=== PATIENT | female | born 1995 | race African-American/Black ===

== ENCOUNTER 2022-08-17 01:10 | Outpatient (CLI) | payer BC, MEDICAID, SELFPAY ==
[2022-08-17] VITALS (9 sets, daily range): BP systolic 146–171; BP diastolic 94–103; PULSE 62–73; BMI 30.9
[2022-08-17 02:34] LABS: Basophils Percent Auto 0.1 % (0.2-1.2); Eosinophils Absolute Auto 0.1 K/mm3 (0-0.3); Eosinophils Percent Auto 1.5 % (0-4.4); Hematocrit 30.8 % (37.0-47.0); Hemoglobin 9.6 g/dL (12.0-15.0); Immature Granulocyte Absolute 0.03 K/mm3 (0.00-0.031); Immature Granulocyte Percent A 0.4 % (0-0.5); Lymphocytes Absolute Auto 2.08 K/mm3 (0.9-3.2); Lymphocytes Percent Auto 24.6 % (18.3-44.2); Mean Corpuscular HGB Conc 31.2 g/dl (32-36); Mean Corpuscular Hemoglobin 25.7 pg (26-34); Mean Corpuscular Volume 82.6 fl (80-100); Mean Platelet Volume 11.3 fl (7.4-10.4); Monocytes Absolute Auto 1.2 K/mm3 (0.1-0.6); Monocytes Percent Auto 13.7 % (2.6-8.5); Neutrophils Percent Auto 59.7 % (45.5-73.1); Platelet Count Result 186 k/mm3 (150-375); Red Blood Count 3.73 M/mm3 (4.2-5.4); Red Cell Distribution Width 13.3 % (11.5-14.5); White Blood Count 8.5 K/mm3 (4.5-10.0)
[2022-08-17 02:36] LABS: Appearance Urine Slightly Cloudy (Clear); Bilirubin Urine Negative (Negative); Blood Urine Negative (Negative); Color Urine Yellow (Yellow); Glucose Urine UA Negative (Negative); Ketones Urine Trace mg/dL (Negative); Leukocyte Esterase Ur 3+ LEU/UL (NEGATIVE); Nitrate Urine Negative (Negative); Protein Urine 1+ mg/dL (Negative); Urobilinogen Urine 0.2 mg/dL (<2.0)
[2022-08-17 02:40] LABS: Bacteria Urine Trace /hpf; Mucus Urine Rare /lpf; Squamous Epithelial Cell Urine Many /hpf (Few); WBC Urine 51-75 /hpf (0-3)
[2022-08-17 03:03] LABS: Alanine Aminotransferase 27 U/L (6-35); Albumin Level 3.3 g/dL (3.5-5.1); Alkaline Phosphatase 133 U/L (38-126); Anion Gap 8 mmol/L (8-16); Aspartate Amino Transferase 30 U/L (14-36); Bilirubin,Total 0.1 mg/dL (0.2-1.3); Blood Urea Nitrogen 9 mg/dL (7-17); Calcium 8.7 mg/dL (8.4-10.2); Carbon Dioxide 23 mmol/L (22-30); Chloride 104 mmol/L (98-107); Estimated Glomerular Filt Rate > 60; Glucose 94 mg/dL (65-110); Sodium 135 mmol/L (137-145); Uric Acid 3.4 mg/dL (2.5-7.5)
[2022-08-17 03:28] LABS: Creatinine Urine 176.1 mg/dL; Total Protein Urine Random 8 mg/dL; Ur Ttl Prot Creatinine Ratio 0.05 mg/mg (0-0.20)
[2022-08-17 03:44] LABS: Add Urine Microscopic? YES
--- NOTE | 2022-08-17 03:56 | OBADM ---
This patient, Mary Grace Moss, admitted to the OB room OB Post 117 for observation. Patient/family oriented to hospital policies and general routines including ID bracelet, bed and alarms, visiting hours, pain management, procedures, bathroom and other care routines, personal items, smoking policy, room service/diet, and visiting hours. Patient/Family are encouraged to report perceived risks to care and to ask questions if they do not understand what they are told or what they should do.
== END 2022-08-17 04:15 | disposition home or self-care (01) ==
LOC: ANHOBOP 01:17 → ANHOBPP 04:07
PROVIDERS: Obstetrics & Gynecology; Visit Provider Obstetrics & Gynecology
DX: O13.9 Gestational [pregnancy-induced] hypertension without significant proteinuria, unspecified trimester (principal); Z3A.00 Weeks of gestation of pregnancy not specified
CPT/HCPCS: 36415; 80053; 81001; 82570; 84156; 84550; 85025; 87086; 87088; 99199

== ENCOUNTER 2022-08-18 07:51 | Outpatient (CLI) | payer BC, MEDICAID, SELFPAY ==
[2022-08-18 07:59] VITALS: BMI 31.1
[2022-08-18 12:26] LABS: Collection Time Urine 24 HOURS
[2022-08-18 12:28] LABS: Total Volume 24 Hour Urine 1350 ml
[2022-08-18 12:38] LABS: Creatinine Clearance Urine 137.6 ml/min (75-125); Creatinine Urine 97.5 mg/dL; Patient Weight 187 Lbs; Total Protein Urine 24 Hr 162 mg/24hr (28-141); Total Protein Urine Random 12 mg/dL
== END 2022-08-18 07:52 | disposition home or self-care (01) ==
LOC: ANHOBOP 07:55
PROVIDERS: Visit Provider Obstetrics & Gynecology
DX: O13.9 Gestational [pregnancy-induced] hypertension without significant proteinuria, unspecified trimester (principal); Z3A.00 Weeks of gestation of pregnancy not specified
CPT/HCPCS: 81050; 82575; 84156

== ENCOUNTER 2022-08-19 14:07 | Outpatient (RCR) | payer BC, MEDICAID, SELFPAY ==
--- NOTE | ~2022-08-19 | US_ITS ---
EXAMINATION: US OB BPP wo non-stress DATE: 08/19/2022 17:01 INDICATION: Nonreactive nonstress test, third trimester TECHNIQUE: Real-time pelvic ultrasound was performed. The interpreting radiologist was not present fo r the study. COMPARISON: None. FINDINGS: There is a single living fetus in vertex presentation. The placenta is posterior/fundal. heart rate is 144 beats per minute (bpm). The amniotic fluid index is 10.8 cm which is normal Biophysical profile performed by the technologist: breathing (30 sec sustained breathing in 30 minutes): 2 out of 2 movement (3 gross body movements in 30 minutes): 2 out of 2 tone (one episode of ipwlzly-rbcujawyl-kzhrrfg limb movement): 2 out of 2 Amniotic fluid pocket (2 cm): 2 out of 2 Total score: 8 out of 8 IMPRESSION: 1. Single living fetus in vertex presentation. 2. Biophysical profile 8 out of 8. Reviewed, dictated and finalized at location A.
[2022-08-19 17:41] VITALS: BP 167/107; PULSE 76
== END 2022-11-17 23:59 | disposition home or self-care (01) ==
LOC: ANHOBOP 14:07
PROVIDERS: Visit Provider Obstetrics & Gynecology
DX: O36.5930 Maternal care for other known or suspected poor fetal growth, third trimester, not applicable or unspecified (principal); O16.3 Unspecified maternal hypertension, third trimester; Z3A.36 36 weeks gestation of pregnancy
CPT/HCPCS: 59025; 76819

== ENCOUNTER 2022-08-21 22:40 | Inpatient (IN) | payer BC, MEDICAID, SELFPAY ==
[2022-08-21 23:26] VITALS: BP 165/105; PULSE 96
[2022-08-21 23:30] VITALS: BP 159/108; PULSE 100; BMI 31.1
[2022-08-21 23:49] LABS: Basophils Percent Auto 0.2 % (0.2-1.2); Eosinophils Absolute Auto 0.1 K/mm3 (0-0.3); Eosinophils Percent Auto 1.6 % (0-4.4); Hematocrit 31.7 % (37.0-47.0); Hemoglobin 10.1 g/dL (12.0-15.0); Immature Granulocyte Absolute 0.03 K/mm3 (0.00-0.031); Immature Granulocyte Percent A 0.4 % (0-0.5); Lymphocytes Absolute Auto 2.04 K/mm3 (0.9-3.2); Lymphocytes Percent Auto 25.2 % (18.3-44.2); Mean Corpuscular HGB Conc 31.9 g/dl (32-36); Mean Corpuscular Volume 81.7 fl (80-100); Mean Platelet Volume 11.8 fl (7.4-10.4); Monocytes Absolute Auto 0.9 K/mm3 (0.1-0.6); Monocytes Percent Auto 11.1 % (2.6-8.5); Neutrophils Percent Auto 61.5 % (45.5-73.1); Platelet Count Result 197 k/mm3 (150-375); Red Blood Count 3.88 M/mm3 (4.2-5.4); Red Cell Distribution Width 13.5 % (11.5-14.5); White Blood Count 8.1 K/mm3 (4.5-10.0)
[2022-08-22] VITALS (105 sets, daily range): BP systolic 126–161; BP diastolic 80–108; PULSE 78–117; TEMP 36.4–37.4; O2SAT 97–100
[2022-08-22 00:03] LABS: Alanine Aminotransferase 21 U/L (6-35); Albumin Level 3.6 g/dL (3.5-5.1); Alkaline Phosphatase 136 U/L (38-126); Anion Gap 11 mmol/L (8-16); Aspartate Amino Transferase 28 U/L (14-36); Bilirubin,Total 0.1 mg/dL (0.2-1.3); Blood Urea Nitrogen 6 mg/dL (7-17); Calcium 8.7 mg/dL (8.4-10.2); Carbon Dioxide 22 mmol/L (22-30); Chloride 102 mmol/L (98-107); Estimated Glomerular Filt Rate > 60; Glucose 103 mg/dL (65-110); Potassium 3.5 mmol/L (3.4-5.0); Sodium 135 mmol/L (137-145)
[2022-08-22 00:04] LABS: Uric Acid 3.4 mg/dL (2.5-7.5)
[2022-08-22 00:44] LABS: HIV 1/2 Ab P24 Ag Result Negative (Negative)
[2022-08-22] MEDS: LACTATED RINGERS 1,000 ML 125 ML IV CONT ×3 (01:04→15:00)
--- NOTE | 2022-08-22 01:09 | LDADM ---
This patient, Mary Grace Moss, was admitted to Labor/Delivery/Recovery 104 on 08/21/22 at 22:40. Plans for labor, pain management and were discussed with patient. Patient/family oriented to hospital policies and general routines including ID bracelet, bed and alarms, visiting hours, pain management, procedures, bathroom and other care routines, personal items, smoking policy, room service/diet and guest tray routines, security routines, and visiting hours. Patient/Family are encouraged to report perceived risks to care and to ask questions if they do not understand what they are told or what they should do. See OBIX for further documentation.
[2022-08-22] MEDS: DINOPROSTONE 10 MG VAG INSERT VAGINAL (01:45)
[2022-08-22] MEDS: LABETALOL HCL 100 MG TABLET 200 MG PO (07:01)
--- NOTE | 2022-08-22 07:39 | PM.IMHP ---
H&P: HPI History of Present Illness Date/Time: 08/22/22 07:39 Chief Complaint: This induction of labor for IUGR and elevated blood pressure Narrative: 26-year-old 1 para 0 whose last menstrual period is unknown EDC is 09/13/2022 confirmed by level week ultrasound presents at36+ weeks gestation for induction of labor. She has had a complicated by an IUGR baby. She has consulted with Maternal- Medicine and has remained in the 1st-2nd percentile throughout with reassuring testing. Her blood pressures over the last 2 weeks have been elevated. In light of her elevated pressures and IUGR she is admitted from Dr. bynum labor. Risks and benefits reviewed. She is negative for group B strep PMFSH Past Medical History Medical History Heart murmur Family History Family History Mother Asthma Diabetes mellitus Hypertension Sibling Hypertension Social History Social History Smoking status: Never smoker Second hand tobacco smoke exposure: No Alcohol intake: current Drinks per week: 1 Alcohol use details: wine-Every so often Substance use: never Substance use type: does not use Gender identity (if verbalized by the patient): Female Agree to blood products: Yes Meds Home Medications and Allergies Home Medications Medication Instructions Recorded Confirmed Type metoclopramide HCl 10 mg tablet 10 mg PO Q6H PRN Nausea 03/07/22 08/22/22 History prenat.vits,miguel,ghv-hehy-odlfc 1 tablet PO DAILY 03/07/22 08/22/22 History nifedipine 30 mg tablet,extended 30 mg PO DAILY #30 tabs 08/17/22 08/22/22 Rx release 24 hr (Procardia XL) Allergies Allergy/AdvReac Type Severity Reaction Status Date / Time No Known Allergies Allergy Verified 08/22/22 01:07 Vital Signs Vital Signs - 24 hr 08/21/22 23:26 08/21/22 23:30 08/22/22 00:00 Temperature 97.6 F Pulse Rate 96 100 Blood Pressure 165/105 H 159/108 H 08/22/22 06:16 08/22/22 00:30 08/22/22 01:45 Temperature Pulse Rate 86 92 96 Blood Pressure 155/108 H 143/89 H 152/94 H 08/22/22 02:00 08/22/22 02:15 08/22/22 03:45 Temperature Pulse Rate 86 93 87 Blood Pressure 150/91 H 154/90 H 154/98 H 08/22/22 06:38 08/22/22 07:00 08/22/22 07:31 Temperature 98.3 F Pulse Rate 93 97 87 Blood Pressure 161/104 H 155/103 H 147/81 H 08/22/22 07:01 Temperature Pulse Rate 93 Blood Pressure Exam Const: General: cooperative, healthy appearing and comfortable Nutritional Appearance: average body habitus and well nourished Orientation/consciousness: oriented to person, oriented to place and oriented to time Chest: Chest palpation & inspection: abnormal inspection of the chest Resp: Effort & Inspection: normal respiratory effort Cardio: Rate: regular rate Rhythm: regular rhythm Heart sounds: S1 normal heart sound present and S2 normal heart sound present GI: Inspection: normal to inspection Auscultation: normal bowel sounds : Speculum Exam - Vagina: normal appearance of the vagina Speculum Exam - Cervix: normal appearance of the cervix Bimanual exam- vagina & uterus: enlarged and other ( FHTs were reassuring) H&P: Results Labs Labs: Short CBC 08/21/22 Range/Units 23:40 WBC 8.1 (4.5-10.0) K/mm3 Hgb 10.1 L (12.0-15.0) g/dL Hct 31.7 L (37.0-47.0) % Plt Count 197 (150-375) k/mm3 BMP 08/21/22 23:40 Sodium 135 L Potassium 3.5 Chloride 102 Carbon Dioxide 22 BUN 6 L Creatinine 0.50 L Glucose 103 Calcium 8.7 Liver Function 08/21/22 Range/Units 23:40 Total Bilirubin 0.1 L (0.2-1.3) mg/dL AST 28 (14-36) U/L ALT 21 (6-35) U/L Alkaline Phosphatase 136 H (38-126) U/L Albumin 3.6 (3.5-5.1) g/dL Assessment and Plan Assessment and plan (1) :
[2022-08-22] MEDS: OXYTOCIN 30 UNITS/NS 500 ML 30 UNITS/500 ML BAG 6 UNITS IV CONT (08:01)
[2022-08-22] MEDS: NIFEdipine 30 MG TAB.ER.24 PO (09:00)
[2022-08-22] MEDS: ACETAMINOPHEN 500 MG TABLET 1000 MG PO ×2 (13:33→21:22)
--- NOTE | 2022-08-22 16:19 | PM.OBPNLAB ---
Pain Control Date/time seen: 08/22/22 16:19 Pain control: tolerating well Pelvic Exam Dilation (cm): 0 Effacement (%): 50 station: -2 Amniotic membrane status: Intact Contractions Monitor mode: External Contraction frequency: 3
[2022-08-23] VITALS (129 sets, daily range): BP systolic 127–176; BP diastolic 66–119; PULSE 70–147; TEMP 36.6–37.7; O2SAT 94–100
--- NOTE | 2022-08-23 07:19 | PM.OBPNLAB ---
Pain Control Date/time seen: 08/23/22 07:19 Pelvic Exam Dilation (cm): 0 Effacement (%): 50 station: -2 Amniotic membrane status: Intact Comments: rested through night Contractions Monitor mode: External Contraction frequency: 3
[2022-08-23 07:21] LABS: Rapid Plasma Reagin Non-Reactive (NonReactive)
[2022-08-23] MEDS: NIFEdipine 30 MG TAB.ER.24 PO (08:52)
--- NOTE | 2022-08-23 13:41 | PM.OBPNLAB ---
Pain Control Date/time seen: 08/23/22 13:41 Pain control: tolerating well Pelvic Exam Dilation (cm): 0 Effacement (%): 50 station: -2 Amniotic membrane status: Intact Contractions Monitor mode: External Contraction frequency: 3
[2022-08-23] MEDS: fentaNYL CITRATE INJ (*CRX) 100 MCG/2 ML VIAL 50 MCG IV PUSH (14:43)
--- NOTE | 2022-08-23 15:31 | PM.OBPNLAB ---
Pain Control Date/time seen: 08/23/22 15:31 Pain control: tolerating well and epidural Pelvic Exam Dilation (cm): 2 Effacement (%): 80 station: -2 Amniotic membrane status: Leaking Contractions Monitor mode: Internal Contraction frequency: 3 Contraction pattern: Regular
[2022-08-23] MEDS: LACTATED RINGERS 1,000 ML 125 ML IV CONT (17:42)
[2022-08-23] MEDS: LABETALOL HCL 100 MG TABLET 200 MG PO (18:36)
[2022-08-23] MEDS: OXYTOCIN 30 UNITS/NS 500 ML 30 UNITS/500 ML BAG 6 UNITS IV CONT (18:58)
[2022-08-24] VITALS (166 sets, daily range): BP systolic 90–178; BP diastolic 58–119; PULSE 83–130; RESP 16–20; TEMP 36.4–38.2; O2SAT 84–100
[2022-08-24] MEDS: LABETALOL HCL 100 MG TABLET 200 MG PO ×4 (03:19→21:53)
[2022-08-24] MEDS: ACETAMINOPHEN 500 MG TABLET 1000 MG PO (03:25)
--- NOTE | 2022-08-24 04:03 | PM.OBPNLAB ---
Pain Control Date/time seen: 08/24/22 04:03 Comments: pushing for hours. no descent. offered section Pelvic Exam Dilation (cm): 10 Effacement (%): 80 station: -2 Amniotic membrane status: Leaking Contractions Monitor mode: Internal Contraction frequency: 3 Contraction pattern: Regular
[2022-08-24] MEDS: KETOROLAC 30 MG/ML VIAL (*BKC) IV PUSH ×2 (04:14→17:39)
[2022-08-24] MEDS: ceFAZolin 2 GM/D5W 50 ML 2 GM/50 ML BAG IVPB (04:14)
--- NOTE | 2022-08-24 04:35 | P.PNAN_ITS ---
Anes - Initial Pre Proc Eval Procedure: Operation Date: 08/24/22 04:15 Proposed Procedures p Section - Parker Lopez MD Date/Time: 08/24/22 04:35 Surgeon: Parker Lopez MD Pre Op Diagnosis: Induction of Labor Patient Data Age: 26 Gender: F Height: 1.65 m Weight: 85 kg Last Vital Signs Temp 38.2 C H 08/24/22 03:25 Pulse 106 H 08/24/22 04:01 BP 167/94 H 08/24/22 04:01 Pulse Ox 100 08/24/22 04:08 O2 Del Method Room Air 08/22/22 08:39 Allergies Allergy/AdvReac Type Severity Reaction Status Date / Time No Known Allergies Allergy Verified 08/22/22 01:07 Home Medications Medication Instructions Recorded Confirmed Type metoclopramide HCl 10 mg tablet 10 mg PO Q6H PRN Nausea 03/07/22 08/22/22 History prenat.vits,miguel,kbx-vdnh-gqweb 1 tablet PO DAILY 03/07/22 08/22/22 History nifedipine 30 mg tablet,extended 30 mg PO DAILY #30 tabs 08/17/22 08/22/22 Rx release 24 hr (Procardia XL) Laboratory Tests 08/21/22 23:40 RPR Non-reactive (NonReactive) Patient hx anesthesia problems: none Family hx anesthesia problems: none Results Review: All pre-operative results and documents have been reviewed as part of the pre- operative evaluation. [facility] Past Medical History Medical History Cluster headaches Heart murmur Hypertension Intrauterine growth restriction (IUGR) affecting care of mother Family History Family History Mother Asthma Diabetes mellitus Hypertension Sibling Hypertension Social History Social History Smoking status: Never smoker Second hand tobacco smoke exposure: No Alcohol intake: current Drinks per week: 1 Alcohol use details: wine-Every so often Substance use: never Substance use type: does not use Gender identity (if verbalized by the patient): Female Spiritual care concerns: No Agree to blood products: Yes Anes - Eval Final PreProcedure Day of Procedure 08/24/22 04:35 Patient weight: obese Heart: regular rate and rhythm Lungs: clear to auscultation Airway: Mallampati scale class II Neurological: alert and oriented ASA classification: III Emergent: no Anesthetic plan: proceed Anesthesia type and monitoring: regional epidural and standard monitoring Other findings: exam per CD Results Review: All pre-operative results and documents have been reviewed as part of the pre- operative evaluation. Informed Consent: The patient's anesthetic plan and its attendant risks and benefits were discussed with the patient/family/POA. Questions were solicited and answers provided to the satisfaction of the patient/family/POA.
--- NOTE | 2022-08-24 05:05 | W.PM.PROC2 ---
Procedure Note - Detailed Date of Procedure 08/24/22 Pre-op Diagnosis Induction of Labor/ IUGR/gestational hypertension/ the you to descend Post-op Diagnosis Same Procedure Performed primary low-transverse section Surgeon Parker Lopez MD Anesthesia Epidural Indications a 26-year-old at 37 weeks gestation with IUGR and gestational hypertension. She was induced got to completely dilated and pushed for several hours. She was unable to get the baby pass -1 station. Findings Female infant 4lb 10oz Description of Procedure after obtaining informed consent patient was wheeled to the back placed in the supine position. Under excellent epidural anesthesia the abdomen was entered in Pfannenstiel fashion progressive layers the fascia. Fascia was incised in upward outward fashion bilaterally. Underlying muscles sharply dissected parietal peritoneum a by Rocio clamp. This entered by sharp dissection carried superiorly and inferiorly down the bladder. Bladder blade placed. Bladder blade returned after bladder flap was formed. Low-transverse incision made the head delivered in the JOHN position. Anterior posterior shoulder delivered spontaneously cord clamped 2 and cut. placed left the table with a cry. Placenta delivered intact manually and uterus delivered on the abdomen wrapped in moist towel. After assuring no membranes or debris remained in the uterus, the uterus was closed with continuous running 0 Vicryl from lateral edge to lateral edge. This was followed by 2nd imbricating running locking 0 Vicryl from lateral edge to lateral edge. Hemostasis was assured and the ovaries tubes uterus were all inspected appeared within normal limits uterus returned to the abdomen the hysterotomy incision inspected 1 last time laps removed and accounted for. The fascia closed with continuous running 0 Vicryl from lateral edge to midline bilaterally. Irrigation subcutaneous layer the skin closed with 4 Monocryl and glue. Blood loss estimated [id number]. All sponge, needle, instrument counts were correct. Mom and baby doing fine at time of dictation. There were no immediate complications Estimated Blood Loss 510 Drains No Packing No Pathology None sent Complications No immediate complications Condition Stable Disposition PACU
--- NOTE | 2022-08-24 06:15 | SUR.PHASEI ---
Belle-pad changed and weighed to better assess blood loss.
--- NOTE | 2022-08-24 06:26 | SUR.PHASEI ---
Dr. Max Lopez on unit and informed of bleeding and pt requiring massage to firm uterus that is above umbilicus and deviated to the right. Order received for Cytotec.
[2022-08-24] MEDS: miSOPROStol 200 MCG TABLET 800 MCG RECTAL (06:30)
[2022-08-24] MEDS: MORPHINE SULFATE INJ (*CRX) 10 MG/ML AMP 3 MG IV PUSH ×2 (06:53→07:00)
--- NOTE | 2022-08-24 07:30 | SUR.PHASEI ---
Dr. Max Lopez returned page and informed of continued bleeding after Cytotec was given with deviation in fundus. Bimanual exam was performed and an additional 453 of clots and blood evacuated. Bleeding is normal now. Even with pt's pain under control now, BP's are still elevated. Order received for Labetalol now and q8hr.
--- NOTE | 2022-08-24 08:18 | SUR.PHASEI ---
Dr. Max Lopez returned page and informed of BP's in the severe range. PO Labetalol was given 30 mins ago. Order for PO Procardia XL received.
[2022-08-24] MEDS: NIFEdipine 30 MG TAB.ER.24 60 MG PO (08:27)
[2022-08-24] MEDS: SODIUM CHLORIDE 0.9% IV 500 ML 999 ML IV CONT (09:47)
[2022-08-24] MEDS: FUROSEMIDE INJ 40 MG/4 ML VIAL 20 MG IV PUSH (09:52)
[2022-08-24] MEDS: OXYTOCIN 30 UNITS/NS 500 ML 30 UNITS/500 ML BAG 125 UNITS IV CONT (10:02)
--- NOTE | 2022-08-24 11:08 | OBPPTRN ---
Patient transferred to post room # 292 via stretcher. Support person present. Oriented to unit, room, information board, rooming in, admission packet and security measures. Patient verbalizes understanding.
[2022-08-24] MEDS: DOCUSATE SODIUM 100 MG CAPSULE PO (17:39)
[2022-08-24] MEDS: KCL 20 MEQ/D5/0.45% SOD CHL 1,000 ML 125 ML IV CONT (21:53)
[2022-08-25] VITALS (17 sets, daily range): BP systolic 118–161; BP diastolic 62–97; PULSE 71–113; RESP 14–16; TEMP 36.2–37.3; O2SAT 99–100
[2022-08-25] MEDS: IBUPROFEN 600 MG TABLET PO ×4 (00:50→23:54)
[2022-08-25] MEDS: SIMETHICONE 80 MG TAB.CHEW PO ×2 (00:51→08:32)
[2022-08-25 05:37] LABS: Basophils Percent Auto 0.1 % (0.2-1.2); Eosinophils Percent Auto 0.4 % (0-4.4); Immature Granulocyte Absolute 0.02 K/mm3 (0.00-0.031); Immature Granulocyte Percent A 0.2 % (0-0.5); Lymphocytes Percent Auto 16.2 % (18.3-44.2); Mean Corpuscular HGB Conc 31.4 g/dl (32-36); Mean Corpuscular Hemoglobin 25.7 pg (26-34); Mean Corpuscular Volume 81.9 fl (80-100); Mean Platelet Volume 10.6 fl (7.4-10.4); Monocytes Absolute Auto 1.1 K/mm3 (0.1-0.6); Monocytes Percent Auto 10.8 % (2.6-8.5); Neutrophils Absolute Auto 7.1 K/mm3 (1.3-6.7); Neutrophils Percent Auto 72.3 % (45.5-73.1); Platelet Count Result 133 k/mm3 (150-375); Red Cell Distribution Width 13.8 % (11.5-14.5); White Blood Count 9.9 K/mm3 (4.5-10.0)
[2022-08-25 05:48] LABS: Hematocrit 17.2 % (37.0-47.0); Hemoglobin 5.4 g/dL (12.0-15.0)
--- NOTE | 2022-08-25 08:25 | PM.OBPNVD ---
OB - PN: Subj Subjective Date/time seen: 08/25/22 08:25 Patient comments: no complaints and pain well controlled baby status: doing well OB - PN: Obj Data Labs CBC & Chem 7: 08/25/22 05:23 08/21/22 23:40 Labs: Laboratory Results - last 24 hr 08/25/22 08/25/22 05:23 05:23 WBC 9.9 RBC 2.10 L Hgb 5.4 L* D Hct 17.2 L* MCV 81.9 MCH 25.7 L MCHC 31.4 L RDW 13.8 Plt Count 133 L MPV 10.6 H Immature Gran % (Auto) 0.2 Neut % (Auto) 72.3 Lymph % (Auto) 16.2 L [place] % (Auto) 10.8 H Eos % (Auto) 0.4 Baso % (Auto) 0.1 L Lymph # (Auto) 1.60 [place] # (Auto) 1.1 H Eos # (Auto) 0.0 Baso # (Auto) 0.0 Abs Immat Gran (auto) 0.02 Absolute Neuts (auto) 7.1 H Absolute Nucleated RBC 0.0 Nucleated RBC % 0.0 Blood Type B Negative Antibody Screen Positive Antibody Identification Inconclusive BRIANNA, IgG Interpret Not Performed BRIANNA, Poly Interpret Neg BRIANNA, Complement Interp Not Performed Screen Negative Baby's Blood Type B pos Baby's BRIANNA Negative Doses of RhIg Required 1 Crossmatch See Detail OB - PN A/P Plan day: 1 Comments: hemoglobin is low. Will proceed with 2units of packed RBCs Time Spent With Patient Time: Total time spent is greater than 50% in coordination of care (as documented) at patient's floor/unit and/or counseling patient: Time with patient: less than 15 minutes Exam Const: General: cooperative, healthy appearing and comfortable Resp: Effort & Inspection: normal respiratory effort GI: Inspection: normal to inspection and incision (Incision clean dry and intact) Auscultation: normal bowel sounds
[2022-08-25] MEDS: DOCUSATE SODIUM 100 MG CAPSULE PO ×2 (08:32→16:31)
[2022-08-25] MEDS: POLYSACCHARIDE IRON COMPLEX 150 MG CAPSULE PO ×2 (08:32→16:31)
[2022-08-25] MEDS: HYDROcodone/acetaminophen (*CRX) 5-325 MG TABLET 1 TAB PO ×3 (08:32→23:54)
[2022-08-25] MEDS: MULTIVIT/MIN/PREN/FOL AC/IRON TABLET 1 TAB PO (08:34)
[2022-08-25] MEDS: SODIUM CHLORIDE 0.9% IV 250 ML 30 ML IV CONT (09:00)
[2022-08-25] MEDS: RHO(D) IMMUNE GLOBULIN 300 MCG/2 ML SYRINGE IM (09:29)
[2022-08-25] MEDS: LABETALOL HCL 100 MG TABLET 200 MG PO (21:58)
[2022-08-26] VITALS (8 sets, daily range): BP systolic 134–149; BP diastolic 79–92; PULSE 75–98; RESP 16–18; TEMP 36.3–36.9; O2SAT 99–100
[2022-08-26] MEDS: IBUPROFEN 600 MG TABLET PO ×3 (05:41→23:53)
[2022-08-26] MEDS: LABETALOL HCL 100 MG TABLET 200 MG PO ×3 (05:41→23:08)
[2022-08-26] MEDS: HYDROcodone/acetaminophen (*CRX) 5-325 MG TABLET 1 TAB PO ×3 (05:41→23:53)
[2022-08-26 05:42] LABS: Hematocrit 24.2 % (37.0-47.0); Hemoglobin 7.8 g/dL (12.0-15.0); Mean Corpuscular HGB Conc 32.2 g/dl (32-36); Mean Corpuscular Hemoglobin 26.8 pg (26-34); Mean Corpuscular Volume 83.2 fl (80-100); Mean Platelet Volume 10.9 fl (7.4-10.4); Platelet Count Result 149 k/mm3 (150-375); Red Blood Count 2.91 M/mm3 (4.2-5.4); Red Cell Distribution Width 14.6 % (11.5-14.5); White Blood Count 11.8 K/mm3 (4.5-10.0)
--- NOTE | 2022-08-26 07:18 | PM.OBPNVD ---
OB - PN: Subj Subjective Date/time seen: 08/26/22 07:18 Patient comments: no complaints and pain well controlled baby status: doing well OB - PN: Obj Data Labs CBC & Chem 7: 08/26/22 05:36 08/21/22 23:40 Labs: Laboratory Results - last 24 hr 08/25/22 08/26/22 05:23 05:36 WBC 11.8 H RBC 2.91 L Hgb 7.8 L Hct 24.2 L MCV 83.2 MCH 26.8 MCHC 32.2 RDW 14.6 H Plt Count 149 L MPV 10.9 H Blood Type B Negative Antibody Screen Positive Antibody Identification Inconclusive Antigen Identification Cancelled BRIANNA, IgG Interpret Not Performed BRIANNA, Poly Interpret Neg BRIANNA, Complement Interp Not Performed Screen Negative Baby's Blood Type B pos Baby's BRIANNA Negative Doses of RhIg Required 1 Enhanced Crossmatch See Detail OB - PN A/P Plan day: 2 Plan: routine care Comments: improved h/h Time Spent With Patient Time: Total time spent is greater than 50% in coordination of care (as documented) at patient's floor/unit and/or counseling patient: Time with patient: less than 15 minutes Exam Const: General: cooperative, healthy appearing and comfortable Orientation/consciousness: oriented to person, oriented to place and oriented to time Resp: Effort & Inspection: normal respiratory effort GI: Inspection: normal to inspection and incision (cdi)
--- NOTE | 2022-08-26 08:00 | PC.NURSE ---
PT introductions made and plan of care discussed per post , post op c section, pain management, breast feeding, daily care activities. PT received such instructions per one to one discussion, mom baby care guide and demonstrations this shift. PT and her grandmother both recipients of such instructions and no barriers to learning identified at this time. PT verbalized understanding of such care.
[2022-08-26] MEDS: DOCUSATE SODIUM 100 MG CAPSULE PO ×2 (09:00→16:17)
[2022-08-26] MEDS: POLYSACCHARIDE IRON COMPLEX 150 MG CAPSULE PO ×2 (09:40→16:18)
[2022-08-26] MEDS: MULTIVIT/MIN/PREN/FOL AC/IRON TABLET 1 TAB PO (09:40)
--- NOTE | 2022-08-26 13:54 | PC.NURSE ---
Introductions were made, then consulted with patient to assess needs related to . Mother placed her phone down and led the conversation with her?plans to feed?her infant by pumping and bottle feeding. Infant is resting in the bassinet with visitor at bedside. She voiced she is not practicing latching, will do so later when she has more energy, and expresses her desire to make milk. Encouraged milk production with stimulating breast with pumping at least 8 times in 24 hours with 1-2 times at night. Resources provided for inpatient and outpatient services using a resource guide and mom/baby guide. Mother voiced understanding of information, declines working with latching at this time and will call if there is a request for assistance.
--- NOTE | 2022-08-26 16:00 | PC.NURSE ---
PT sound asleep and v/s not recorded
[2022-08-26] MEDS: SIMETHICONE 80 MG TAB.CHEW PO (23:53)
[2022-08-27 07:40] VITALS: PULSE 78
[2022-08-27] MEDS: LABETALOL HCL 100 MG TABLET 200 MG PO (07:40)
[2022-08-27] MEDS: IBUPROFEN 600 MG TABLET PO (07:43)
--- NOTE | 2022-08-27 07:45 | PM.DS ---
DS: Admitting Diagnosis Discharge Date 08/27/2022 Admitting Diagnosis 37 week . IUGR /gestational hypertension DS: Discharge Diagnosis Discharge Diagnosis (1) : Code(s): Z34.90 - Encounter for supervision of normal , unspecified, unspecified trimester Status: Acute (2) Gestational hypertension: Code(s): O13.9 - Gestational [-induced] hypertension without significant proteinuria, unspecified trimester Status: Acute (3) Intrauterine growth restriction (IUGR) affecting care of mother: Code(s): O36.5990 - Maternal care for other known or suspected poor growth, unspecified trimester, not applicable or unspecified Status: Acute (4) Anemia: Code(s): D64.9 - Anemia, unspecified Status: Acute DS: Summary Hospital Course Reason for hospitalization: patient was admitted for induction of labor at 37 weeks with severe IUGR and gestational hypertension. She failed to descend and underwent low-transverse section. She required 2units of blood postoperatively that remained afebrile and stable after that. She was up, voiding without difficulty, ambulating, generally without complaints. Hospital Course: See above Time Spent with Patient Time attestation: Total time spent providing and/or coordinating discharge services: Exam Const: General: cooperative, healthy appearing and comfortable Orientation/consciousness: oriented to person, oriented to place and oriented to time Resp: Effort & Inspection: normal respiratory effort Cardio: Rate: regular rate Rhythm: regular rhythm GI: Inspection: normal to inspection and incision ( wound clean dry and intact) : External Female Exam: normal external appearance Speculum Exam - Vagina: normal appearance of the vagina DS: Data Data Completed and Pending Pending studies at discharge: Pending at discharge 08/24/22 04:45 Surgical [PTH] Routine Labs on day of discharge: Labs from last 24 hours 08/25/22 05:23 Blood Type B Negative Antibody Screen Positive Antibody Identification Inconclusive Antigen Identification Cancelled BRIANNA, Poly Interpret Neg Screen Negative Baby's Blood Type B pos Baby's BRIANNA Negative Doses of RhIg Required 1 Enhanced Crossmatch See Detail Discharge Plan Discharge Attending physician on discharge: Parker Solomon Discharging Clinician: Parker Solomon Patient Disposition: Home, Self-Care Activity: may shower, may drive after 2 weeks and pelvic rest Diet: heart healthy Wound Care Instructions: follow printed instructions Patient Instructions: Antibiotic Form Stand Alone Forms: General Discharge Information Follow-up/Referrals: Parker Solomon MD [Physician] - Discharge Medications: New hydrocodone-acetaminophen 5-325 mg tablet 1 tablet PO Q4H PRN (Reason: pain) Qty: 20 0RF labetalol 200 mg tablet 200 mg PO Q12H Qty: 60 0RF Continued metoclopramide HCl 10 mg tablet 10 mg PO Q6H PRN (Reason: Nausea) prenat.vits,miguel,[id number] Tablet 1 tablet PO DAILY Discontinued nifedipine [Procardia XL] 30 mg Tablet Extended Release 24hr 30 mg PO DAILY Qty: 30 0RF Date of admission: 08/21/22 22:40 Primary Care Provider: Gary Benoit Admitting Provider: Parker Solomon Attending physician on admission: Parker Solomon Condition: Stable
[2022-08-27 07:50] VITALS: BP 155/80; PULSE 100; RESP 18; TEMP 36.8; O2SAT 100
[2022-08-27] MEDS: HYDROcodone/acetaminophen (*CRX) 10-325 MG TABLET 1 TAB PO ×2 (07:50→12:29)
[2022-08-27] MEDS: DOCUSATE SODIUM 100 MG CAPSULE PO (07:51)
[2022-08-27] MEDS: POLYSACCHARIDE IRON COMPLEX 150 MG CAPSULE PO (07:51)
[2022-08-27] MEDS: SIMETHICONE 80 MG TAB.CHEW PO (07:51)
[2022-08-27] MEDS: MULTIVIT/MIN/PREN/FOL AC/IRON TABLET 1 TAB PO (07:51)
--- NOTE | 2022-08-27 07:52 | PM.OBPNVD ---
OB - PN: Subj Subjective Date/time seen: 08/27/22 07:52 Patient comments: no complaints and pain well controlled baby status: doing well and nursing well OB - PN: Obj Data Labs CBC & Chem 7: 08/26/22 05:36 08/21/22 23:40 Labs: Laboratory Results - last 24 hr 08/25/22 05:23 Blood Type B Negative Antibody Screen Positive Antibody Identification Inconclusive Antigen Identification Cancelled BRIANNA, Poly Interpret Neg Screen Negative Baby's Blood Type B pos Baby's BRIANNA Negative Doses of RhIg Required 1 Enhanced Crossmatch See Detail OB - PN A/P Plan day: 3 Plan: routine care, discharge home and follow up 6 weeks ( 4 weeks) Time Spent With Patient Time: Total time spent is greater than 50% in coordination of care (as documented) at patient's floor/unit and/or counseling patient: Time with patient: less than 15 minutes Exam Const: General: cooperative, healthy appearing and comfortable GI: Inspection: incision ( clean dry and intact)
[2022-08-27 08:00] VITALS: PULSE 78; RESP 18; O2SAT 100
--- NOTE | 2022-08-27 09:08 | PC.NURSE ---
Patient viewed the discharge video Mother & Baby Care, The First Two Weeks . Patient was given the opportunity and encouraged to ask questions. Patient verbalized understanding of information shared and has been given the mother/baby guide for home reference.
[2022-08-27] MEDS: MEASLES,MUMPS,RUBELLA VACCINE 0.5 ML VIAL SUB-Q (10:36)
[2022-08-28 15:09] VITALS: BP 198/110; PULSE 61; RESP 18; TEMP 37.1; O2SAT 100
== END 2022-08-27 12:40 | disposition home or self-care (01) | DRG 788 ==
LOC: ANHLDR 08-22 10:20 → ANHOB2 08-24 11:37
PROVIDERS: Admitting Provider Obstetrics & Gynecology; PCP Internal Medicine; Visit Provider Obstetrics & Gynecology
PROC: 10D00Z1 Extraction of Products of Conception, Low, Open Approach (ICD-10-PCS; CPT 59514; principal; 2022-08-24 04:15)
DX: O32.4XX0 Maternal care for high head at term, not applicable or unspecified (principal); O36.5930 Maternal care for other known or suspected poor fetal growth, third trimester, not applicable or unspecified; O13.4 Gestational [pregnancy-induced] hypertension without significant proteinuria, complicating childbirth; O99.02 Anemia complicating childbirth; O14.94 Unspecified pre-eclampsia, complicating childbirth; O76 Abnormality in fetal heart rate and rhythm complicating labor and delivery; Z3A.37 37 weeks gestation of pregnancy; Z37.0 Single live birth
CPT/HCPCS: 36415; 36430; 80053; 84550; 85025; 85027; 85461; 86592; 86703; 86850; 86880; 86900; 86901; 86902; 86922; 88307; 90384; 90710; A9270; G0432; J0456; J0690; J1885; J1940; J2270; J2274; J2405; J2590; J2790; J2795; J3010; J3480; J7040; J7050; J7120; P9016

== ENCOUNTER 2022-08-28 21:32 | Observation (INO) | payer BC, MEDICAID, SELFPAY ==
[2022-08-28] VITALS (58 sets, daily range): BP systolic 151–199; BP diastolic 88–113; PULSE 55–139; RESP 16; TEMP 36.3; O2SAT 87–100; BMI 29.7
--- NOTE | ~2022-08-28 | XR_ITS ---
EXAMINATION: XR chest 2V DATE: 08/29/2022 09:39 INDICATION: Chest tightness. TECHNIQUE: Frontal and lateral views of the chest were obtained. COMPARISON: None. FINDINGS: There is no pneumonia or pneumothorax. There are tiny pleural effusions. The heart size is normal. IMPRESSION: 1. Tiny pleural effusions. Reviewed, dictated and finalized at location A. IMPRESSION: 1. Tiny pleural effusions.
[2022-08-28] MEDS: LABETALOL HCL 100 MG TABLET 200 MG PO ×2 (16:11→22:08)
[2022-08-28 16:34] LABS: Basophils Percent Auto 0.3 % (0.2-1.2); Eosinophils Absolute Auto 0.1 K/mm3 (0-0.3); Eosinophils Percent Auto 1.2 % (0-4.4); Hematocrit 28.5 % (37.0-47.0); Hemoglobin 8.8 g/dL (12.0-15.0); Immature Granulocyte Absolute 0.06 K/mm3 (0.00-0.031); Immature Granulocyte Percent A 0.8 % (0-0.5); Lymphocytes Absolute Auto 1.53 K/mm3 (0.9-3.2); Lymphocytes Percent Auto 21.2 % (18.3-44.2); Mean Corpuscular HGB Conc 30.9 g/dl (32-36); Mean Corpuscular Hemoglobin 26.4 pg (26-34); Mean Corpuscular Volume 85.6 fl (80-100); Mean Platelet Volume 9.8 fl (7.4-10.4); Monocytes Absolute Auto 1.1 K/mm3 (0.1-0.6); Neutrophils Absolute Auto 4.4 K/mm3 (1.3-6.7); Neutrophils Percent Auto 61.5 % (45.5-73.1); Nucleated Red Blood Cells Perc 0.6 % (0.0-0.2); Platelet Count Result 250 k/mm3 (150-375); Red Blood Count 3.33 M/mm3 (4.2-5.4); Red Cell Distribution Width 15.5 % (11.5-14.5); White Blood Count 7.2 K/mm3 (4.5-10.0)
[2022-08-28 16:48] LABS: Alanine Aminotransferase 22 U/L (6-35); Albumin Level 3.6 g/dL (3.5-5.1); Alkaline Phosphatase 125 U/L (38-126); Anion Gap 9 mmol/L (8-16); Aspartate Amino Transferase 39 U/L (14-36); Bilirubin,Total 0.4 mg/dL (0.2-1.3); Blood Urea Nitrogen 4 mg/dL (7-17); Calcium 8.8 mg/dL (8.4-10.2); Carbon Dioxide 25 mmol/L (22-30); Chloride 105 mmol/L (98-107); Estimated Glomerular Filt Rate > 60; Glucose 81 mg/dL (65-110); Potassium 4.3 mmol/L (3.4-5.0); Sodium 139 mmol/L (137-145); Uric Acid 4.8 mg/dL (2.5-7.5)
[2022-08-28] MEDS: NIFEdipine 30 MG TAB.ER.24 60 MG PO (17:07)
--- NOTE | 2022-08-28 17:41 | PC.NURSE ---
1704- Spoke with Dr. Max Lopez, Labetalol 200 PO given at 1611, BP's still elevated in severe range. Orders to give 60 mg PO Procardia XL now. Call back in 1 hour with update.
--- NOTE | 2022-08-28 17:43 | PC.NURSE ---
1734- Spoke with Dr. Max Lopez, updated on BP's after Procardia given at 1707. Orders to take manual BP and call in an hour with an update on BP's.
[2022-08-28] MEDS: IBUPROFEN 600 MG TABLET PO (17:54)
--- NOTE | 2022-08-28 18:55 | ECG_ITS ---
Measurements Intervals [place] Rate: 64 P: 28 OK: 169 QRS: 18 QRSD: 79 T: 5 QT: 406 QTc: 422 Interpretive Statements SINUS RHYTHM POSSIBLE RIGHT VENTRICULAR CONDUCTION DELAY [RSR (QR) IN V1/V2] NO PREVIOUS ECG AVAILABLE FOR COMPARISON Electronically Signed On 08-29-2022 17:11:44 CDT by Fly Merritt M.D.
--- NOTE | 2022-08-28 20:09 | PC.NURSE ---
Vinod Garcia, respiratory, spoke with Dr. Dawn. Nereyda reported that EKG is normal.
--- NOTE | 2022-08-28 20:46 | OBADM ---
This patient, Mary Grace Moss, admitted to the OB room OB Post 116 for observation. Patient/family oriented to hospital policies and general routines including ID bracelet, bed and alarms, visiting hours, pain management, procedures, bathroom and other care routines, personal items, smoking policy, room service/diet, and visiting hours. Patient/Family are encouraged to report perceived risks to care and to ask questions if they do not understand what they are told or what they should do.
[2022-08-28] MEDS: MULTIVIT/MIN/PREN/FOL AC/IRON TABLET 1 TAB PO (22:09)
[2022-08-29] VITALS (71 sets, daily range): BP systolic 138–148; BP diastolic 76–80; PULSE 25–135; TEMP 36.8; O2SAT 86–100
[2022-08-29] MEDS: ACETAMINOPHEN 325 MG TABLET 650 MG PO (04:22)
--- NOTE | 2022-08-29 04:32 | PM.IMHP ---
H&P: HPI History of Present Illness Date/Time: 08/29/22 04:32 Chief Complaint: elevated blood pressure Narrative: this is a 27-year-old who delivered by and IUGR baby couple days ago. She had elevated blood pressure at the end of her and was on labetalol 200 3 times a day as well as Procardia. Her blood pressure improved after although she did have 2units of blood that time. She was in for her check and blood pressure is noted be elevated. She is admitted for observation and treatment for elevated blood pressure at this time [facility] Past Medical History Medical History Cluster headaches Heart murmur Hypertension Intrauterine growth restriction (IUGR) affecting care of mother Family History Family History Mother Asthma Diabetes mellitus Hypertension Sibling Hypertension Social History Social History Smoking status: Never smoker Second hand tobacco smoke exposure: No Alcohol intake: current Drinks per week: 1 Alcohol use details: wine-Every so often Substance use: never Substance use type: does not use Gender identity (if verbalized by the patient): Female Spiritual care concerns: No Agree to blood products: Yes Meds Home Medications and Allergies Home Medications Medication Instructions Recorded Confirmed Type metoclopramide HCl 10 mg tablet 10 mg PO Q6H PRN Nausea 03/07/22 08/22/22 History prenat.vits,miguel,drh-jvdh-bohur 1 tablet PO DAILY 03/07/22 08/22/22 History hydrocodone 5 mg-acetaminophen 325 1 tablet PO Q4H PRN pain #20 tabs 08/27/22 Rx mg tablet labetalol 200 mg tablet 200 mg PO Q12H #60 tabs 08/27/22 Rx Allergies Allergy/AdvReac Type Severity Reaction Status Date / Time No Known Allergies Allergy Verified 08/22/22 01:07 Vital Signs Vital Signs - 24 hr 08/28/22 16:11 08/28/22 16:13 08/28/22 16:31 Temperature Pulse Rate 76 76 58 L Respiratory Rate Blood Pressure 161/110 H 177/104 H Pulse Oximetry Oxygen Delivery 08/28/22 16:46 08/28/22 17:01 08/28/22 17:16 Temperature Pulse Rate 61 58 L 60 Respiratory Rate Blood Pressure 162/102 H 175/110 H 190/99 H Pulse Oximetry Oxygen Delivery 08/28/22 17:31 08/28/22 17:39 08/28/22 17:44 Temperature Pulse Rate 60 Respiratory Rate Blood Pressure 199/113 H Pulse Oximetry 100 100 Oxygen Delivery 08/28/22 17:46 08/28/22 17:49 08/28/22 17:54 Temperature Pulse Rate 60 Respiratory Rate Blood Pressure 171/104 H Pulse Oximetry 99 99 Oxygen Delivery 08/28/22 17:59 08/28/22 18:01 08/28/22 18:04 Temperature Pulse Rate 71 Respiratory Rate Blood Pressure 169/106 H Pulse Oximetry 98 100 Oxygen Delivery 08/28/22 18:09 08/28/22 18:14 08/28/22 18:16 Temperature Pulse Rate 76 Respiratory Rate Blood Pressure 159/98 H Pulse Oximetry 99 100 Oxygen Delivery 08/28/22 18:19 08/28/22 18:31 08/28/22 19:04 Temperature Pulse Rate 78 Respiratory Rate Blood Pressure 151/91 H Pulse Oximetry 99 99 Oxygen Delivery 08/28/22 19:08 08/28/22 19:13 08/28/22 19:21 Temperature Pulse Rate Respiratory Rate Blood Pressure Pulse Oximetry 98 100 100 Oxygen Delivery 08/28/22 19:24 08/28/22 19:29 08/28/22 18:44 Temperature Pulse Rate Respiratory Rate 16 Blood Pressure 158/88 H Pulse Oximetry 100 100 Oxygen Delivery 08/28/22 19:38 08/28/22 19:44 08/28/22 19:49 Temperature Pulse Rate Respiratory Rate 16 Blood Pressure 166/96 H Pulse Oximetry 100 99 Oxygen Delivery 08/28/22 19:54 08/28/22 19:54 08/28/22 19:59 Temperature Pulse Rate Respiratory Rate Blood Pressure Pulse Oximetry 100 100 100 Oxygen Delivery
[2022-08-29] MEDS: LABETALOL HCL 100 MG TABLET 200 MG PO (06:17)
[2022-08-29] MEDS: NIFEdipine 30 MG TAB.ER.24 60 MG PO (06:17)
--- NOTE | 2022-08-29 07:12 | PC.NURSE ---
Patient with complaints of a headache rating a 6, ordered motrin. Patient sleeping at this time.
[2022-08-29] MEDS: IBUPROFEN 600 MG TABLET PO (09:45)
--- NOTE | 2022-08-29 12:37 | PM.DS ---
DS: Admitting Diagnosis Discharge Date 08/29/2022 Admitting Diagnosis hypertension DS: Discharge Diagnosis Discharge Diagnosis (1) hypertension: Code(s): O16.5 - Unspecified maternal hypertension, complicating the puerperium Status: Acute DS: Summary Hospital Course Reason for hospitalization: Patient was admitted for control blood pressure Hospital Course: Patient was admitted noted to have elevated blood pressures. She had been on labetalol 200 b.i.d. and was asymptomatic she underwent PIH labs which were negative had a small amount of chest pain and EKG and chest x-ray which were normal and normal O2 sats. Procardia XL 60 was added on to the 200mg of labetalol 3 times a day and her blood pressure was controlled she is discharged home with [facility] Time Spent with Patient Time attestation: Total time spent providing and/or coordinating discharge services: DS: Data Data Completed and Pending Labs on day of discharge: Labs from last 24 hours 08/28/22 08/28/22 16:15 16:15 WBC 7.2 RBC 3.33 L Hgb 8.8 L Hct 28.5 L MCV 85.6 MCH 26.4 MCHC 30.9 L RDW 15.5 H Plt Count 250 D MPV 9.8 Immature Gran % (Auto) 0.8 H Neut % (Auto) 61.5 Lymph % (Auto) 21.2 Sauk % (Auto) 15.0 H Eos % (Auto) 1.2 Baso % (Auto) 0.3 Lymph # (Auto) 1.53 [place]k # (Auto) 1.1 H Eos # (Auto) 0.1 Baso # (Auto) 0.0 Abs Immat Gran (auto) 0.06 H Absolute Neuts (auto) 4.4 Absolute Nucleated RBC 0.0 Nucleated RBC % 0.6 H Sodium 139 Potassium 4.3 Chloride 105 Carbon Dioxide 25 Anion Gap 9 BUN 4 L Creatinine 0.70 Estim Creat Clear Calc Not Reportable Estimated GFR > 60 Glucose 81 Uric Acid 4.8 Calcium 8.8 Total Bilirubin 0.4 AST 39 H ALT 22 Alkaline Phosphatase 125 Total Protein 7.0 Albumin 3.6 Discharge Plan Discharge Attending physician on discharge: Parker Solomon Discharging Clinician: Parker Solomon Patient Disposition: Home, Self-Care Activity: as tolerated Diet: as tolerated and regular Discharge Instructions: BREAST CARE: * Wear a snug supportive bra. * For engorgement discomfort: Breast Feeding: * Apply warm moist washcloths * Express milk as needed to relieve engorgement * Wear loose clothing Bottle Feeding: * May apply ice packs * For sore nipples: * Identify correct latch-on * Apply warm moist washcloths before and after nursing * Air dry nipples after nursing * May apply Lansinoh cream to nipples ABDOMINAL INCISION: (if applicable) * Allow incision to air dry * Do NOT use lotions for powders on your incision * When showering, allow soap and water to run over the incision, but do not wash incision EPISIOTOMY/PERINEAL CARE: * Until bleeding stops, use your liliane bottle after urinating * Change your pad frequently throughout the day * You may take sitz baths several times a day (fill your bathtub with warm water and soak for 20 minutes.) Do NOT bathe in the water * No tub baths until seen by your physician - You may shower ACTIVITY: * Rest as much as possible. * Do not exercise or lift anything heavier than your baby (such as laundry or other children.) * Avoid stairs or driving as much as possible. * Do not put anything into the vagina. No douching, tampons, or sexual activity until seen by physician. NOTIFY PHYSICIAN IF YOU HAVE ANY QUESTIONS OR IF ANY OF THE FOLLOWING SYMPTOMS OCCUR: * If your episiotomy or incision becomes red, swollen, or more painful than what you have experienced in the hospital. * If your vaginal bleeding becomes foul smelling. * If your vaginal bleeding becomes more heavy than a period or if your bleeding changes from pink to bright red. However, you may pass an occasional walnut-sized clot once or twice for the first week . * If you experi
== END 2022-08-29 13:28 | disposition home or self-care (01) ==
LOC: ANHOBOP 23:06 → ANHOBPP 23:06
PROVIDERS: Admitting Provider Obstetrics & Gynecology; PCP Internal Medicine; Visit Provider Obstetrics & Gynecology
DX: O16.5 Unspecified maternal hypertension, complicating the puerperium (principal); Z79.891 Long term (current) use of opiate analgesic; Z79.899 Other long term (current) drug therapy
CPT/HCPCS: 36415; 71046; 80053; 84550; 85025; 93005; A9270; G0378; G0379

== ENCOUNTER 2023-04-17 13:49 | Outpatient (CLI) | payer BC, MEDICAID, SELFPAY ==
[2023-04-17 15:20] LABS: Hematocrit 39.4 % (37.0-47.0); Hemoglobin 12.1 g/dL (12.0-15.0)
== END 2023-04-17 13:50 | disposition home or self-care (01) ==
LOC: ANHSURGERY 13:57
PROVIDERS: PCP Nurse Practitioner; Visit Provider Obstetrics & Gynecology
DX: R10.2 Pelvic and perineal pain (principal)
CPT/HCPCS: 36415; 85014; 85018; 86850; 86900; 86901

== ENCOUNTER 2023-04-25 02:13 | Day surgery (SDC) | payer BC, MEDICAID, SELFPAY ==
[2023-04-16 09:29] VITALS: BMI 29.9
--- NOTE | 2023-04-16 09:33 | PC.NURSE ---
Report to the Outpatient Waiting Room, entrance under the green pavilion located off [facility], at time 7:15 on date 04/25/23. Planned Procedure Time: 9:15. Time changes happen often and if your time is changed the preop area will call you the afternoon before. - You and your visitor will be asked to self-screen and do not enter if you have any COVID symptoms. - A mask is optional within the hospital at this time. Patients may have clear liquids (water, carbonated beverages, clear teas, apple juice) until 3 hours prior to surgery (6:15) with a maximum of 20 ounces. - No food from midnight until time of surgery Take the following medications with a SIP of water the morning of surgery: LABETALOL, SERTRALINE DO NOT STOP ANY OF YOUR OTHER PRESCRIPTION MEDICATIONS PRIOR TO SURGERY EXCEPT THE FOLLOWING Medications to discontinue per physician: N/A Date to take last dose: N/A Please no make-up, nail syrian, hairspray, perfume, deodorant, or body powder the day of surgery. No jewelry (including any body piercings) or valuables the day of surgery, leave them at home. Please take a shower or bath the night before, or the morning of, surgery with an antibacterial soap. Wear comfortable, loose fitting clothing. - Jewelry must be removed prior to entering the operating room. Rings and piercings that are not removed may be cut off. - The hospital will not accept responsibility for valuables. - Please leave all valuables, including medications, at home the day of surgery. If you are going home after surgery, a licensed driver wheelchair must drive you home. - NO public transportation without another adult if you receive anesthesia. - We recommend that an adult stay with you for 24 hours following discharge. - We also recommend that you do not drive, make important decision, drink alcoholic beverages, or take any drugs that were not prescribed by your health care provider for at least 24 hours after your discharge time. Follow any additional instructions given to you from your surgeon. If you or anyone in your household have experienced Covid symptoms in the past week, please notify your surgeon or the nurse liaison at the phone number below for possible testing. Telephone instructions given to PT - SKIP JEONG and asked if any additional questions and then verbalized understanding. Patient advised to call surgeon office or pre surgery nurse liaison [phone] if any additional questions.
--- NOTE | 2023-04-23 07:40 | PM.IMHP ---
H&P: HPI History of Present Illness Date/Time: 04/23/23 07:40 Chief Complaint: pelvic pain and excessive bleeding Narrative: a 27-year-old female admitted for laparoscopy hysteroscopy dilatation curettage. She did have a chlamydial infection was treated for that. Her periods however remained heavy and irregular and she is having pelvic pain. Risks and benefits reviewed including but not exclusive of , aspiration bony a, bleeding, transfusion, perforation injury to bowel, bladder, ureters, or other internal organs with need for laparotomy. She received the AC handouts entitled laparoscopy, hysteroscopy, dilatation curettage respectively. She had all questions answered and asked to proceed PMFSH Past Medical History Medical History Cluster headaches Heart murmur Hypertension Intrauterine growth restriction (IUGR) affecting care of mother Family History Family History Mother Asthma Diabetes mellitus Hypertension Sibling Hypertension Social History Social History Smoking status: Never smoker Second hand tobacco smoke exposure: No Alcohol intake: current Drinks per week: 1 Alcohol use details: 2/MONTH Substance use: never Substance use type: does not use Living arrangements: with family Additional living arrangements comments: CHILD Gender identity (if verbalized by the patient): Female Spiritual care concerns: No Agree to blood products: Yes Meds Home Medications and Allergies Home Medications Medication Instructions Recorded Confirmed Type labetalol 200 mg tablet 200 mg PO Q12H #90 tabs 08/29/22 04/16/23 Rx norethindrone (contraceptive) 0.35 0.35 mg PO DAILY 04/16/23 04/16/23 History mg tablet sertraline 50 mg tablet 50 mg PO DAILY 04/16/23 04/16/23 History Allergies Allergy/AdvReac Type Severity Reaction Status Date / Time No Known Allergies Allergy Verified 04/16/23 09:27 Exam Const: General: cooperative and comfortable Nutritional Appearance: average body habitus Orientation/consciousness: oriented to person, oriented to place and oriented to time HENMT: Head: normal to inspection Resp: Effort & Inspection: normal respiratory effort Cardio: Rate: regular rate Rhythm: regular rhythm Heart sounds: S1 normal heart sound present and S2 normal heart sound present GI: Inspection: normal to inspection : External Female Exam: normal external appearance Speculum Exam - Vagina: normal appearance of the vagina Speculum Exam - Cervix: normal appearance of the cervix Bimanual exam- vagina & uterus: Uterine tenderness Bimanual Exam- Adnexa, other: tender bilaterally Assessment and Plan Assessment and plan (1) Pelvic pain: Code(s): R10.2 - Pelvic and perineal pain Status: Acute (2) Excessive bleeding: Code(s): R58 - Hemorrhage, not elsewhere classified Status: Acute Plan laparoscopy/hysteroscopy / dilatation and curettage
[2023-04-25] VITALS (9 sets, daily range): BP systolic 111–162; BP diastolic 69–100; PULSE 55–88; RESP 12–20; TEMP 36.8–36.9; O2SAT 99–100
--- NOTE | 2023-04-25 06:01 | WPDHPUPDATE1 ---
History and Physical Update Update Date/Time: 04/25/23 06:01 History and Physical has been reviewed, including an updated exam of the patient. There are NO changes in the patient's condition. Risks, benefits, and alternatives have been discussed and questions answered. Patient agrees to proceed with procedure.
[2023-04-25] MEDS: ACETAMINOPHEN 500 MG TABLET 1000 MG PO (07:51)
[2023-04-25] MEDS: LACTATED RINGERS 1,000 ML 30 ML IV CONT ×2 (08:00→10:10)
[2023-04-25] MEDS: KETOROLAC 15 MG/ML VIAL (*BKC) IV PUSH (08:03)
--- NOTE | 2023-04-25 09:02 | WPDANESEPPF ---
Anes - Initial Pre Proc Eval Procedure: Operation Date: 04/25/23 09:15 Proposed Procedures p Laparoscopy with Hysteroscopy Dilation and Curettage - Parker Lopez MD Date/Time: 04/25/23 09:02 Surgeon: Parker Lopez MD Pre Op Diagnosis: Pelvic Pain, Dyspareunia. Irg Bleeding Patient Data Age: 27 Gender: F Height: 1.65 m Weight: 82.55 kg Last Vital Signs Temp 36.9 C 04/25/23 07:24 Pulse 88 04/25/23 07:24 Resp 20 04/25/23 07:24 BP 162/100 H 04/25/23 07:24 Pulse Ox 99 04/25/23 07:24 O2 Del Method Room Air 04/25/23 07:24 Allergies Allergy/AdvReac Type Severity Reaction Status Date / Time No Known Allergies Allergy Verified 04/16/23 09:27 Home Medications Medication Instructions Recorded Confirmed Type labetalol 200 mg tablet 200 mg PO Q12H #90 tabs 08/29/22 04/25/23 Rx norethindrone (contraceptive) 0.35 0.35 mg PO DAILY 04/16/23 04/25/23 History mg tablet sertraline 50 mg tablet 50 mg PO DAILY 04/16/23 04/25/23 History hydrocodone 5 mg-acetaminophen 325 1 tablet PO Q4H PRN pain #20 tabs 04/25/23 Rx mg tablet Patient hx anesthesia problems: none Family hx anesthesia problems: none Results Review: All pre-operative results and documents have been reviewed as part of the pre-operative evaluation. [facility] Past Medical History Medical History Cluster headaches Heart murmur Hypertension Intrauterine growth restriction (IUGR) affecting care of mother Family History Family History Mother Asthma Diabetes mellitus Hypertension Sibling Hypertension Social History Social History Smoking status: Never smoker Second hand tobacco smoke exposure: No Alcohol intake: current Drinks per week: 1 Alcohol use details: 2/MONTH Substance use: never Substance use type: does not use Living arrangements: with family Additional living arrangements comments: CHILD Gender identity (if verbalized by the patient): Female Spiritual care concerns: No Agree to blood products: Yes Anes - Eval Final PreProcedure Day of Procedure 04/25/23 09:02 Patient weight: overweight Heart: regular rate and rhythm Lungs: clear to auscultation Airway: Mallampati scale class III Neurological: alert and oriented Last oral intake: >/= 8 hours ASA classification: II Emergent: no Anesthetic plan: proceed Anesthesia type and monitoring: general ETT and standard monitoring Results Review: All pre-operative results and documents have been reviewed as part of the pre-operative evaluation. Informed Consent: The patient's anesthetic plan and its attendant risks and benefits were discussed with the patient/family/POA. Questions were solicited and answers provided to the satisfaction of the patient/family/POA.
--- NOTE | 2023-04-25 10:03 | W.PM.PROC2 ---
Procedure Note - Detailed Date of Procedure 04/25/23 Pre-op Diagnosis Pelvic Pain, Dyspareunia. Irg Bleeding Post-op Diagnosis Same (Left ovarian cyst) Procedure Performed laparoscopy with left cyst destruction hysteroscopy dilatation curettage Surgeon Parker Lopez MD Anesthesia General Indications cis a 27-year-old female with pelvic pain and irregular bleeding Findings uterus with changes consistent with previous section. A large benign-appearing left ovarian cyst with serosanguineous fluid. A 10cc of serosanguineous fluid was seen in the cul-de-sac. Normal-appearing appendix was seen. Normal-appearing gallbladder and liver edge. On hysteroscopy thick irregular endometrium was seen but no evidence of definitive pathology Description of Procedure patient was prepped draped in normal sterile fashion placed in the dorsal lithotomy position. Under excellent general trach anesthesia weighted speculum placed in posterior fornix vagina. Anterior lip of the cervix grasped with single-tooth tenaculum. Miller's cannula inserted the cervix attached to the single-tooth to be used later for uterine ablation. After emptying the bladder of clear urine weighted speculum was removed and the gloves were changed. An infraumbilical incision made. Veress needle passed in the abdomen. Abdomen filled with CO2 gas. 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 No injury seen the patient placed in Trendelenburg and a suprapubic incision made. The 5mm trocar advanced under direct visualization assuring injury. The above findings were seen in photo documentation undertaken. The serosanguineous fluid the cul-de-sac was removed a large ovarian cyst was seen and a linear incision made and drained until it appeared clear. The bladder was mildly adherent to the anterior surface of the uterus. The opposite ovary appeared within normal limits. The liver gallbladder and appendix appeared within normal limits. Irrigation was undertaken until clear. The instruments withdrawn. The patient went to recovery in satisfactory condition after closing the incisions with 4-0 Monocryl and glue blood loss was estimated 5cc. All sponge, needle, instrument counts were correct Estimated Blood Loss 5 Drains No Packing No Pathology None sent Complications No immediate complications Condition Stable Disposition PACU
[2023-04-25] MEDS: oxyCODONE HCL (*CRX) 5 MG TAB IR PO (11:52)
--- NOTE | 2023-04-25 12:52 | SUR.PHASEII ---
1240 PATIENT MEETS ANESTHESIA DISCHARGE CRITERIA. DRESSED AND WAITING FOR A RIDE HOME.
== END 2023-04-25 12:52 | disposition home or self-care (01) ==
PROVIDERS: PCP Nurse Practitioner; Visit Provider Obstetrics & Gynecology
PROC: 0UDB8ZZ Extraction of Endometrium, Via Natural or Artificial Opening Endoscopic (ICD-10-PCS; CPT 58558; principal; 2023-04-25 09:15)
DX: N93.9 Abnormal uterine and vaginal bleeding, unspecified (principal); N83.202 Unspecified ovarian cyst, left side; R10.2 Pelvic and perineal pain; I10 Essential (primary) hypertension
CPT/HCPCS: 58558; 58662; 88305; A9270; J0330; J1100; J1885; J2250; J2405; J2704; J2710; J3010; J7030; J7120